=== PATIENT | female | born 1960 | race Caucasian/White ===

== ENCOUNTER 2020-06-15 19:07 | Inpatient (IN) ==
[2020-06-16] MEDS ORDERED: Melatonin 3 MG TABLET PO PRN (16:09)
[2020-06-16] MEDS ORDERED: D5% in Water 1,000 ML IVC PRN (16:11)
[2020-06-16] MEDS ORDERED: *HR* Dextrose 50 % in Water (Vial) 50 ML VIAL IVP PRN (16:11)
[2020-06-16] MEDS ORDERED: Dextrose Gel 15 GM/37.5 ML TUBE PO PRN ×2 (16:11)
[2020-06-16] MEDS: Insulin LISPRO 300 UNITS/3 ML VIAL SUBQ SCH ×2 (18:29→20:06)
[2020-06-16] MEDS: Insulin DETEMIR 100 UNIT/ML X5UNITS SUBQ SCH (20:06)
[2020-06-16] MEDS: *HR* OxyCODONE/APAP 10/325 TABLET PO PRN (22:10)
[2020-06-17 07:54] LABS: Basophils % 0.3 %; Eosinophils # 0.3 K/mcL (0.0-0.6); Eosinophils % 4.3 %; Hematocrit 32.7 % (35.3-44.9); Hemoglobin 10.8 g/dL (11.5-15.4); Immature Granulocytes % 0.5 % (0-4); Lymphocytes # 1.8 K/mcL (0.6-4.6); Lymphocytes % 28.2 %; Mean Corpuscular Hemoglobin 28.4 pg (28.0-33.3); Mean Corpuscular Volume 86.1 fL (83.0-100.0); Mean Platelet Volume 9.5 fL (9.4-12.4); Monocytes # 0.4 K/mcL (0.0-1.3); Monocytes % 5.9 %; Neutrophils # 3.9 K/mcL (1.6-8.9); Platelet Count 205 K/mcL (140-400); Red Cell Distribution Width 12.2 % (11.5-14.5); Segmented Neutrophils % 60.8 %; White Blood Count 6.5 K/mcL (4.3-11.1)
[2020-06-17 08:12] LABS: BUN/Creatinine Ratio 19 (6-26); Blood Urea Nitrogen 12 mg/dL (8-23); Carbon Dioxide 30 mEq/L (23-29); Chloride 101 mEq/L (98-107); Glucose 148 mg/dL (70-105); Osmolality,Calculated 289 (280-300); Potassium 3.7 mEq/L (3.5-5.1); Sodium 138 mEq/L (136-145); eGFR For African Americans > 60 (> 60); eGFR For Non-African Americans > 60 (> 60)
[2020-06-17] MEDS: Insulin LISPRO 300 UNITS/3 ML VIAL SUBQ SCH ×4 (08:50→20:22)
[2020-06-17] MEDS: Acetaminophen 325 MG TABLET PO PRN (09:13)
[2020-06-17] MEDS: *HR* Rivaroxaban 10 MG TABLET PO SCH (09:14)
[2020-06-17] MEDS: Sennosides/Docusate Sodium TABLET PO PRN (09:14)
[2020-06-17] MEDS: Cholecalciferol (D-3) 1,000 UNIT (25MCG) TABLET PO SCH (09:14)
[2020-06-17] MEDS: Multivit/Ca/Min/Fe/FA 1 TAB TABLET PO SCH (09:14)
[2020-06-17] MEDS: Insulin DETEMIR 100 UNIT/ML X5UNITS SUBQ SCH (20:22)
[2020-06-17] MEDS: *HR* OxyCODONE/APAP 10/325 TABLET PO PRN (22:06)
[2020-06-18] MEDS: *HR* Rivaroxaban 10 MG TABLET PO SCH (08:13)
[2020-06-18] MEDS: Insulin LISPRO 300 UNITS/3 ML VIAL SUBQ SCH ×4 (08:13→21:22)
[2020-06-18] MEDS: Cholecalciferol (D-3) 1,000 UNIT (25MCG) TABLET PO SCH (08:13)
[2020-06-18] MEDS: Multivit/Ca/Min/Fe/FA 1 TAB TABLET PO SCH (08:14)
[2020-06-18] MEDS: Sennosides/Docusate Sodium TABLET PO PRN (08:33)
[2020-06-18] MEDS ORDERED: *HR* OxyCODONE/APAP 5/325 TABLET PO PRN (14:03)
[2020-06-18] MEDS: Insulin DETEMIR 100 UNIT/ML X5UNITS SUBQ SCH (21:21)
[2020-06-19] MEDS: Insulin LISPRO 300 UNITS/3 ML VIAL SUBQ SCH ×5 (09:28→20:59)
[2020-06-19] MEDS: Sennosides/Docusate Sodium TABLET PO PRN (09:55)
[2020-06-19] MEDS: Cholecalciferol (D-3) 1,000 UNIT (25MCG) TABLET PO SCH (09:56)
[2020-06-19] MEDS: Multivit/Ca/Min/Fe/FA 1 TAB TABLET PO SCH (09:56)
[2020-06-19] MEDS: *HR* Rivaroxaban 10 MG TABLET PO SCH (09:56)
[2020-06-19] MEDS: *HR* Metformin 500 MG TABLET PO SCH (16:59)
[2020-06-19] MEDS: Acetaminophen 325 MG TABLET PO PRN (18:37)
[2020-06-19] MEDS: Insulin DETEMIR 100 UNIT/ML X5UNITS SUBQ SCH (21:00)
[2020-06-20] MEDS: Multivit/Ca/Min/Fe/FA 1 TAB TABLET PO SCH (07:37)
[2020-06-20] MEDS: Insulin LISPRO 300 UNITS/3 ML VIAL SUBQ SCH ×4 (07:37→20:55)
[2020-06-20] MEDS: Cholecalciferol (D-3) 1,000 UNIT (25MCG) TABLET PO SCH (07:37)
[2020-06-20] MEDS: *HR* Metformin 500 MG TABLET PO SCH ×2 (07:37→16:53)
[2020-06-20] MEDS: *HR* Rivaroxaban 10 MG TABLET PO SCH (07:37)
[2020-06-20] MEDS: Insulin DETEMIR 100 UNIT/ML X5UNITS SUBQ SCH (20:55)
[2020-06-21] MEDS: Insulin LISPRO 300 UNITS/3 ML VIAL SUBQ SCH ×4 (07:53→20:36)
[2020-06-21] MEDS: Multivit/Ca/Min/Fe/FA 1 TAB TABLET PO SCH (08:29)
[2020-06-21] MEDS: Cholecalciferol (D-3) 1,000 UNIT (25MCG) TABLET PO SCH (08:29)
[2020-06-21] MEDS: *HR* Metformin 500 MG TABLET PO SCH ×2 (08:29→16:27)
[2020-06-21] MEDS: *HR* Rivaroxaban 10 MG TABLET PO SCH (08:30)
[2020-06-22 07:05] VITALS: BP 127/68
[2020-06-22] MEDS: Insulin LISPRO 300 UNITS/3 ML VIAL SUBQ SCH ×2 (07:44→11:31)
[2020-06-22] MEDS: Cholecalciferol (D-3) 1,000 UNIT (25MCG) TABLET PO SCH (07:47)
[2020-06-22] MEDS: *HR* Metformin 500 MG TABLET PO SCH (07:47)
[2020-06-22] MEDS: *HR* Rivaroxaban 10 MG TABLET PO SCH (07:47)
[2020-06-22] MEDS: Multivit/Ca/Min/Fe/FA 1 TAB TABLET PO SCH (07:47)
[2020-06-22] MEDS: Sennosides/Docusate Sodium TABLET PO PRN (07:54)
== END 2020-06-22 14:25 | disposition home or self-care (01) | DRG 561 ==
LOC: INPPIK 06-16 15:51
PROVIDERS: ADMIT Family Medicine; ATTEND Family Medicine